=== PATIENT | male | born 1980 | race Caucasian/White ===

== ENCOUNTER 2018-08-21 20:28 | Emergency (ER) | payer OTHER ==
[~2018-08-21] VITALS: Ht 162.6 cm; Wt 59.0 kg
[2018-08-21 20:37] VITALS: Ht 162.6 cm; Wt 59.0 kg
[2018-08-21 22:07] VITALS: BP 134/80
== END 2018-08-21 22:30 | disposition home or self-care (01) ==
LOC: ED 20:28
DX: T20.60XA Corrosion of second degree of head, face, and neck, unspecified site, initial encounter (principal); T65.891A Toxic effect of other specified substances, accidental (unintentional), initial encounter; H10.212 Acute toxic conjunctivitis, left eye; Y93.89 Activity, other specified; Y92.89 Other specified places as the place of occurrence of the external cause; Y99.8 Other external cause status
CPT/HCPCS: J7030; V2632

== ENCOUNTER 2019-05-14 20:47 | Inpatient (IN) | payer OTHER ==
[~2019-05-14] VITALS: Ht 162.6 cm; Wt 59.9 kg
[2019-05-14 20:50] VITALS: Ht 162.6 cm; Wt 59.9 kg
--- NOTE | 2019-05-14 22:07 | NUR ---
DR HERNANDEZ AT BEDSIDE FOR MSE
--- NOTE | 2019-05-14 22:08 | NUR ---
PT REPORTS RLQ ABD PAIN THAT RADIATES TO LOWER BACK. PT DENIES ANY N/V/D. PT REPORTS NORMAL BOWEL MOVEMENTS. PT DENIES ANY FEVER AND REPORTS NORMAL APPETITE. PT DENIES ANY PAIN UPON URINATION. PT IS A/O X4. PT RESPS ARE E/U. PT IS ABLE TO AMBULATE WITH STEADY GAIT TO RESTROOM TO GIVE URINE SPECIMEN. DR HERNANDEZ AT BEDSIDE
[2019-05-14 22:43] LABS: microscopic required? NO
[2019-05-14 23:06] LABS: BASOPHIL % 0.5 % (0-2); PLATELET COUNT 225 x10^3mcL (130-400); RED CELL DISTRIBUTION WIDTH 12.9 % (11.5-14.5)
[2019-05-14 23:09] LABS: urine erythrocyte NEGATIVE (NEGATIVE)
[2019-05-14 23:12] LABS: CALCIUM 8.7 mg/dL (8.5-10.1); CHLORIDE SERUM 103 mmol/L (98-107); CREATININE SERUM 0.7 mg/dL (0.7-1.3); GFR1 > 60 mL/min; GLUCOSE SERUM 84 mg/dL (74-106); POTASSIUM SERUM 3.4 mmol/L (3.5-5.1); SODIUM SERUM 140 mmol/L (136-145)
[2019-05-14 23:24] LABS: ALBUMIN 3.4 g/dL (3.4-5.0); ALKALINE PHOSPHATASE 77 U/L (46-116); ALT/SGPT 22 U/L (16-63); AST/SGOT 8 U/L (15-37); BILIRUBIN TOTAL 0.71 mg/dL (0.20-1.00); LIPASE 102 IU/L (73-393); TOTAL PROTEIN, SERUM 6.8 g/dL (6.4-8.2)
--- NOTE | 2019-05-14 23:57 | NUR ---
PT TRANSPORTED TO CT SCAN VIA WHEELCHAIR
--- NOTE | 2019-05-15 00:20 | NUR ---
PT RETURNED FROM CT WITH NO INCIDENCE
--- NOTE | 2019-05-15 00:27 | NUR ---
PT IS RESTING IN ED GURNEY IN POSITION OF COMFORT. SIGNIFICANT OTHER AT BEDSIDE. PT REPORTS " PAIN HAS SUBSIDED". PT IS A/O X4. PT RESPS ARE E/U. NO ACD NOTED
--- NOTE | 2019-05-15 01:20 | NUR ---
DR HERNANDEZ AT BEDSIDE TO DISCUSS PLAN OF CARE WITH PT.
--- NOTE | 2019-05-15 02:06 | NUR ---
PT IS BEING ADMITTED TO MED SURG FLOOR. GAVE PT REPORT TO MABEL HERNANDEZ UPSTAIRS TO ASSUME PRIMARY CARE OF PT.
--- NOTE | 2019-05-15 02:15 | NUR ---
RECEIVED PT FROM PREVIOUS SHIFT NURSE. PT AOX4. DENIES AGUILA/DIZZINESS. MED SURG PT, DENIES CP/PRESSURE. DENIES SOB/DIFFICULTY BREATHING, ON RA. IV TO LAC, INTACT AND PATENT. BED IN LOWEST POSITION. CALL LIGHT WITHIN REACH. WILL CONTINUE TO MONITOR.
--- NOTE | 2019-05-15 02:18 | NUR ---
PT WHEELED UPSTAIRS TO MED SURG FLOOR TO ROOM 257B. PT IS A/O X4. PT RESPS ARE E/U. NO INCIDENCE NOTED
[2019-05-15 02:23] VITALS: BP 116/68
--- NOTE | 2019-05-15 04:15 | NUR ---
PT RESTING IN BED. RR EVEN AND UNLABORED. IN NO ACUTE DISTRESS. CALL LIGHT WITHIN REACH. BED IN LOWEST POSITION. WILL CONTINUE TO MONITOR.
[2019-05-15 05:52] VITALS: BP 98/58
[2019-05-15 07:09] LABS: BASOPHIL % 0.7 % (0-2); PLATELET COUNT 210 x10^3mcL (130-400); RED CELL DISTRIBUTION WIDTH 13.2 % (11.5-14.5)
[2019-05-15 07:19] LABS: CALCIUM 8.3 mg/dL (8.5-10.1); CHLORIDE SERUM 108 mmol/L (98-107); CREATININE SERUM 0.7 mg/dL (0.7-1.3); GFR1 > 60 mL/min; GLUCOSE SERUM 94 mg/dL (74-106); POTASSIUM SERUM 3.7 mmol/L (3.5-5.1); SODIUM SERUM 142 mmol/L (136-145)
--- NOTE | 2019-05-15 07:33 | NUR ---
RECEIVED IN NO DISTRESS. AWAKE AND ALERT. NO C/O PAIN AT THIS TIME. VS WNL. IVF INFUSING WELL AND SITE CLEAR. CALL LIGHT WITHIN REACH. WILL CONTINUE WITH PLAN OF CARE.
[2019-05-15 09:30] VITALS: BP 104/56
--- NOTE | 2019-05-15 13:37 | NUR ---
RESTING IN BED, NO C/O ABD. PAIN AT THIS TIME. FAMILY AT BEDSIDE.
[2019-05-15 16:39] VITALS: BP 109/61
--- NOTE | 2019-05-15 18:25 | NUR ---
PT TOLERATED WELL WITH MEALS. NO N/V NOR ABD. PAIN.
--- NOTE | 2019-05-15 19:07 | NUR ---
PT REMAINS IN NO DISTRESS. AWAKE AND ALERT. NO C/O PAIN OR DISCOMFORT AT THIS TIME. NO CHANGES IN VS. IVF INFUSING WELL AND SITE CLEAR. FAMILY AT BEDSIDE. WILL BE ENDORSED TO INCOMING SHIFT.
[2019-05-15 19:18] VITALS: BP 109/61
== END 2019-05-15 19:45 | disposition home or self-care (01) | DRG 392 ==
LOC: ED 20:47 → MU 05-15 01:21
PROVIDERS: Emergency Medicine; ADMIT Internal Medicine
DX: K57.20 Diverticulitis of large intestine with perforation and abscess without bleeding (principal)
CPT/HCPCS: G0378; J1644; J2405; J2543; J3010; J3490; J7030; Q9967